=== PATIENT | male | born 1960 | race Caucasian/White ===

== ENCOUNTER 2017-03-17 22:11 | Emergency (ER) | payer OTHER ==
[~2017-03-17] VITALS: Ht 175.3 cm; Wt 130.6 kg
[~2017-03-17 22:11] MED LIST: CITALOPRAM HBR40 MG PO; FUROSEMIDE20 MG PO; GABAPENTIN300 MG PO; HYDROXYZINE HCL25 MG PO; LISINOPRIL-HCT1 EAC3 PO; LO-DOSE ASPIRIN81 M2 PO; METFORMIN HCL500 MG PO; METOPROLOL SUCC50 MG PO; SIMVASTATIN20 MG PO; VENTOLIN HFA18 GM IH
[2017-03-17] MEDS ORDERED: FLONASE ALLERG9.9 ML BOTH NARES (22:39)
[2017-03-17] MEDS ORDERED: FUROSEMIDE20 MG PO (22:39)
[2017-03-17] MEDS ORDERED: EFFEXOR75 MG PO (22:40)
[2017-03-17 23:03] LABS: POINT-OF-CARE METER ID UU14100415
[2017-03-17] MEDS ORDERED: NORCO 5/3251 TABLET PO (23:11)
[2017-03-17] MEDS ORDERED: CLINDAMYCIN HC300 MG PO (23:11)
[2017-03-17] MEDS ORDERED: CIPRODEX OTIC7.5 ML LEFT EAR (23:54)
[2017-03-18 00:10] VITALS: BP 129/79
== END 2017-03-18 00:19 | disposition home or self-care (01) ==
LOC: EME 22:11
PROVIDERS: Emergency Medicine
DX: H66.92 Otitis media, unspecified, left ear (principal); E11.65 Type 2 diabetes mellitus with hyperglycemia; J06.9 Acute upper respiratory infection, unspecified; K08.89 Other specified disorders of teeth and supporting structures
CPT/HCPCS: 82948; 99281; 99284

== ENCOUNTER 2017-05-01 20:24 | Emergency (ER) | payer OTHER ==
[~2017-05-01] VITALS: Ht 175.3 cm; Wt 134.1 kg
[~2017-05-01 20:24] MED LIST changes: +CIPRODEX OTIC7.5 ML LEFT EAR; +CLINDAMYCIN HC300 MG PO; +EFFEXOR75 MG PO; +FLONASE ALLERG9.9 ML BOTH NARES; +NORCO 5/3251 TABLET PO
[2017-05-01] MEDS ORDERED: NORCO 5/3251 TABLET PO (20:51)
[2017-05-01 21:25] VITALS: BP 152/82
== END 2017-05-01 21:26 | disposition home or self-care (01) ==
LOC: EME 20:24
DX: H66.91 Otitis media, unspecified, right ear (principal)
CPT/HCPCS: 99281; 99283

== ENCOUNTER 2017-08-03 19:15 | Emergency (ER) | payer OTHER ==
[~2017-08-03] VITALS: Ht 175.3 cm; Wt 131.6 kg
[2017-08-03 21:13] LABS: HEMATOCRIT 43.8 % (38.0-50.0); MCH 28.3 PG (29.0-34.0); MCHC 32.2 G/DL (30.0-36.0); MEAN PLAT.VOLUME 10.6 uM^3 (9.0-12.4); PLATELET COUNT 281 K/uL (156-360); RBC DIS.WIDTH-CV 13.6 % (11.8-14.6); RBC DIS.WIDTH-SD 43.5 % (39-53); RED BLOOD COUNT 4.98 M/uL (4.00-5.50)
[2017-08-03 21:27] LABS: CHLORIDE 101 mEq/L (99-109); POTASSIUM 4.2 mEq/L (3.7-5.4); SODIUM 137 mEq/L (136-147)
[2017-08-03 21:29] LABS: GLUCOSE 395 mg/dL (70-99)
[2017-08-03 21:31] LABS: ANION GAP 11 MEQ/L (2-14)
[2017-08-03 21:33] LABS: GFR ESTIMATE (CALCULATED) > 59 mL/min/
[2017-08-03 21:34] LABS: UREA NITROGEN (BUN) 16 mg/dL (9-23)
[2017-08-03] MEDS ORDERED: PREDNISONE20 MG PO (22:27)
[2017-08-03 22:56] VITALS: BP 141/68
== END 2017-08-03 22:57 | disposition home or self-care (01) ==
LOC: EME 19:15
DX: G51.0 Bell's palsy (principal); J44.9 Chronic obstructive pulmonary disease, unspecified; I10 Essential (primary) hypertension; E78.5 Hyperlipidemia, unspecified; E11.9 Type 2 diabetes mellitus without complications; Z79.84 Long term (current) use of oral hypoglycemic drugs; Z79.82 Long term (current) use of aspirin; Z87.891 Personal history of nicotine dependence
CPT/HCPCS: 70450; 71020; 80048; 85027; 93005; 99281; 99284